=== PATIENT | female | born 1945 | race Caucasian/White ===

== ENCOUNTER → 2024-01-22 06:44 | Outpatient (REF) | payer MEDICARE, SELFPAY ==
[2024-01-22 08:13] LABS: Blood Urea Nitrogen 14 mg/dl (7-17); Calcium 9.3 mg/dl (8.4-10.2); Carbon Dioxide 26 mmol/L (22-30); Chloride 104 mmol/L (98-107); Glucose 94 mg/dl (70-99); Potassium 4.2 mmol/L (3.5-5.1); Sodium 136 mmol/L (135-145); eGFR > 60.00
[2024-01-22 08:34] LABS: TSH 1.14 uIU/ml (0.47-4.68)
[2024-01-22 09:10] LABS: Folate > 20.0 ng/ml (2.76-20); Vitamin B12 921 pg/ml (239-931)
[2024-01-22 14:49] LABS: Syphilis/T. pallidum Ab Reflex Negative (Negative)
[2024-01-24 14:27] LABS: Lyme Antibody Screen, EIA Negative (Negative)
[2024-01-25 01:45] LABS: Albumin 4.21 g/dL (3.75-5.01); Alpha 1 Globulin 0.34 g/dL (0.19-0.46); Alpha 2 Globulin 0.68 g/dL (0.48-1.05); Free Kappa Light Chains,Quant 16.39 mg/L (3.30-19.40); IgA 154 mg/dL (68-408); IgG 621 mg/dL (768-1632); IgM 84 mg/dL (35-263); Immunofixation Electrophoresis IFE Done; Total Protein-Electrophoresis 6.7 g/dL (6.3-8.2)
== END ==
LOC: REG 06:44
PROVIDERS: ATTENDING PHYSICIAN Internal Medicine Hematology & Oncology; FAMILY PHYSICIAN Family Medicine
DX: D80.1 Nonfamilial hypogammaglobulinemia (principal); H93.13 Tinnitus, bilateral
CPT/HCPCS: 36415; 80048; 82607; 82746; 82784; 83521; 84155; 84165; 84443; 86334; 86618; 86780

== ENCOUNTER → 2024-03-26 12:30 | Outpatient (REF) | payer MEDICARE, SELFPAY | LOC: RCS 12:30 | PROVIDERS: ATTENDING PHYSICIAN Internal Medicine Cardiovascular Disease; FAMILY PHYSICIAN Family Medicine | DX: I35.0 Nonrheumatic aortic (valve) stenosis (principal) | CPT/HCPCS: 93306 ==

== ENCOUNTER → 2024-05-22 06:27 | Outpatient (REF) | payer MEDICARE, SELFPAY ==
[2024-05-22 07:19] LABS: ALT (SGPT) 23 U/L (0-35); AST (SGOT) 38 U/L (14-36); Albumin 4.3 g/dl (3.5-5.0); Alkaline Phosphatase 62 U/L (38-126); Direct Bilirubin 0.1 mg/dl (0.0-0.4); HDL Cholesterol 76 mg/dl; LDL Cholesterol, Calculated 68 mg/dl; Total Bilirubin 0.6 mg/dl (0.2-1.3); Total Cholesterol 157 mg/dl (50-199); Total Protein 6.5 g/dl (6.3-8.2); Triglyceride 67 mg/dl (10-149); Very Low Density Lipoprotein 13 mg/dl (0-30)
== END ==
LOC: REG 06:27
PROVIDERS: ATTENDING PHYSICIAN Family Medicine; REFERRING PHYSICIAN Internal Medicine Cardiovascular Disease
DX: E78.5 Hyperlipidemia, unspecified (principal)
CPT/HCPCS: 36415; 80061; 80076

== ENCOUNTER → 2024-07-09 08:29 | Outpatient (REF) | payer MEDICARE, SELFPAY | LOC: RAD 08:29 | PROVIDERS: ATTENDING PHYSICIAN Family Medicine | DX: N95.1 Menopausal and female climacteric states (principal); M85.89 Other specified disorders of bone density and structure, multiple sites | CPT/HCPCS: 77080 ==

== ENCOUNTER → 2024-12-08 06:42 | Outpatient (REF) | payer MEDICARE, SELFPAY ==
[2024-12-08 07:27] LABS: % Basophils 0.8 % (0-2); % Eosinophils 1.3 % (0-6); % Immature Granulocytes 0.3 % (0-0.5); % Lymphocytes 26.5 % (20.5-51.1); % Monocytes 8.2 % (1.7-9.3); % Neutrophils 62.9 % (42.2-75.2); Absolute Eosinophils 0.1 10^3/uL (0-0.7); Absolute Monocytes 0.3 10^3/uL (0.1-0.6); Absolute Neutrophils 2.4 10^3/uL (1.4-6.5); Hematocrit 41.5 % (37.0-47.0); Hemoglobin 13.6 g/dL (12.0-16.0); Mean Corp Hgb Conc. 32.8 g/dL (33.0-37.0); Mean Corpuscular Hgb 31.2 pg (27.0-31.0); Mean Corpuscular Volume 95.2 fL (81.0-99.0); Mean Platelet Volume 9.6 fL (7.4-10.4); Nucleated Red Blood Cells % 0 %; Platelet Count 178 10^3/uL (130-400); Red Blood Cell Count 4.36 10^6/uL (4.20-5.40); Red Cell Dist. Width 12.2 % (11.5-14.5); White Blood Cell Count 3.9 10^3/uL (4.8-10.8)
[2024-12-08 07:59] LABS: ALT (SGPT) 25 U/L (0-35); AST (SGOT) 40 U/L (14-36); Albumin 4.1 g/dl (3.5-5.0); Alkaline Phosphatase 59 U/L (38-126); HDL Cholesterol 80 mg/dl; LDL Cholesterol, Calculated 68 mg/dl; Total Bilirubin 0.5 mg/dl (0.2-1.3); Total Cholesterol 159 mg/dl (50-199); Total Protein 6.2 g/dl (6.3-8.2); Triglyceride 57 mg/dl (10-149); Very Low Density Lipoprotein 11 mg/dl (0-30)
== END ==
LOC: REG 06:42
PROVIDERS: ATTENDING PHYSICIAN Family Medicine; REFERRING PHYSICIAN Internal Medicine Cardiovascular Disease
DX: E78.5 Hyperlipidemia, unspecified (principal); I25.10 Atherosclerotic heart disease of native coronary artery without angina pectoris; R74.01 Elevation of levels of liver transaminase levels
CPT/HCPCS: 36415; 80061; 80076; 85025

== ENCOUNTER → 2024-12-18 08:09 | Outpatient (REF) | payer MEDICARE, SELFPAY | LOC: RCS 08:09 | PROVIDERS: ATTENDING PHYSICIAN Internal Medicine Cardiovascular Disease; FAMILY PHYSICIAN Family Medicine | DX: I34.0 Nonrheumatic mitral (valve) insufficiency (principal) | CPT/HCPCS: 93306 ==

== ENCOUNTER → 2025-01-09 06:42 | Outpatient (REF) | payer MEDICARE, SELFPAY | LOC: RAD 06:42 | PROVIDERS: ATTENDING PHYSICIAN Family Medicine | DX: R74.01 Elevation of levels of liver transaminase levels (principal) | CPT/HCPCS: 76700 ==

== ENCOUNTER → 2025-03-30 06:52 | Outpatient (REF) | payer MEDICARE, SELFPAY ==
[2025-03-30 09:39] LABS: Blood Urea Nitrogen 14 mg/dl (7-17); Calcium 9.2 mg/dl (8.4-10.2); Carbon Dioxide 28 mmol/L (22-30); Chloride 105 mmol/L (98-107); Glucose 51 mg/dl (70-99); Potassium 4.3 mmol/L (3.5-5.1); Sodium 142 mmol/L (135-145); eGFR > 60.00
== END ==
LOC: REG 06:52
PROVIDERS: ATTENDING PHYSICIAN Nurse Practitioner Acute Care; FAMILY PHYSICIAN Family Medicine; REFERRING PHYSICIAN Internal Medicine Cardiovascular Disease
DX: I35.0 Nonrheumatic aortic (valve) stenosis (principal)
CPT/HCPCS: 36415; 80048

== ENCOUNTER → 2025-04-02 11:40 | Outpatient (REF) | payer MEDICARE, SELFPAY | LOC: RAD 11:40 | PROVIDERS: ATTENDING PHYSICIAN Nurse Practitioner Acute Care; FAMILY PHYSICIAN Family Medicine; REFERRING PHYSICIAN Internal Medicine Cardiovascular Disease | DX: I35.0 Nonrheumatic aortic (valve) stenosis (principal) | CPT/HCPCS: 74174; 75572; Q9967 ==

== ENCOUNTER 2025-05-14 05:24 | Inpatient (IN) | payer MEDICARE, SELFPAY ==
[2025-05-05 12:27] VITALS: BMI 23.5
[2025-05-05 13:01] LABS: % Basophils 0.8 % (0-2); % Eosinophils 1.3 % (0-6); % Immature Granulocytes 0.2 % (0-0.5); % Lymphocytes 24.1 % (20.5-51.1); % Neutrophils 66.6 % (42.2-75.2); Absolute Eosinophils 0.1 10^3/uL (0-0.7); Absolute Lymphocytes 1.1 10^3/uL (1.2-3.4); Absolute Monocytes 0.3 10^3/uL (0.1-0.6); Absolute Neutrophils 3.2 10^3/uL (1.4-6.5); Hematocrit 42.1 % (37.0-47.0); Hemoglobin 13.9 g/dL (12.0-16.0); Mean Corpuscular Hgb 31.3 pg (27.0-31.0); Mean Corpuscular Volume 94.8 fL (81.0-99.0); Mean Platelet Volume 9.4 fL (7.4-10.4); Nucleated Red Blood Cells % 0 %; Platelet Count 205 10^3/uL (130-400); Red Blood Cell Count 4.44 10^6/uL (4.20-5.40); Red Cell Dist. Width 12.2 % (11.5-14.5); White Blood Cell Count 4.7 10^3/uL (4.8-10.8)
[2025-05-05 13:03] LABS: Urine Albumin Negative (Neg - Trace); Urine Bilirubin Negative (Negative); Urine Character Clear (Clear); Urine Color Yellow; Urine Glucose Negative (Negative); Urine Ketone Negative (Negative); Urine Leukocyte Negative (Negative); Urine Nitrite Negative (Negative); Urine Occult Blood Negative (Negative); Urine Specific Gravity 1.005 (<1.030); Urine Urobilinogen Negative (Neg - 1+)
[2025-05-05 13:20] LABS: INR 0.91; PT 12.6 Sec (11.4-14.6)
[2025-05-05 13:21] LABS: APTT 30.7 Sec (23.4-35.0)
[2025-05-05 13:22] LABS: ALT (SGPT) 21 U/L (0-35); AST (SGOT) 32 U/L (14-36); Albumin 4.7 g/dl (3.5-5.0); Alkaline Phosphatase 64 U/L (38-126); Blood Urea Nitrogen 13 mg/dl (7-17); Calcium 9.2 mg/dl (8.4-10.2); Carbon Dioxide 29 mmol/L (22-30); Chloride 106 mmol/L (98-107); Estimated Creatinine Clearance 52 ml/min; Glucose 95 mg/dl (70-99); Potassium 4.2 mmol/L (3.5-5.1); Sodium 141 mmol/L (135-145); Total Bilirubin 0.7 mg/dl (0.2-1.3); eGFR > 60.00
[2025-05-05 13:23] LABS: NT-proBNP 700 pg/ml
[2025-05-05 14:15] LABS: Glycohemoglobin (HgbA1c) 5.8 % (4.0-5.6)
--- NOTE | 2025-05-05 16:26 | CM ---
spoke to pt in PAT's, we discussed preop TAVR teaching including sternal and driving restrictions. she is prev very indep, lives with her s.o. in a 2 story home with 2 steps to enter. she has the TAVR educ book, soap and instructions. she is
agreeable to a f/u visit for the ct transitional care nurse after dc. cm role explained and all questions answered. plan is for TAVR 05/14.
[2025-05-14] VITALS (17 sets, daily range): BP systolic 101–144; BP diastolic 67–102; BMI 22.9
--- NOTE | 2025-05-14 06:09 | PTCARENOTE ---
Pt came in @ 0520 this AM for direct admit for a TAVR procedure. AAOx3. VSS-- NSR w/ PVCs on monitor. CHG shower at home, 81 mg Aspirin taken this AM per directions. Pt clipped, IV placed, CHG wipes, type and screen completed. Discussed plan of care
for day. Pt verbalizes understanding. Call muir within reach.
--- NOTE | 2025-05-14 06:10 | W.CVOR.SURPR ---
CVOR Surgeon Immed Pre Op
-
I have examined this patient prior to performance of the scheduled procedure.
The patient's condition is unchanged from the time of the dictated/written History and
Physical and the patient is able to undergo the scheduled procedure.
TF TAVR
Full Rescue
[2025-05-14] MEDS: ANCEF 10 IV (07:06)
--- NOTE | 2025-05-14 08:55 | ITS.CL.TAVR ---
Correctional Maintenance Technician - TAVR Report
TAVR PRocedure
Procedure Report:
TRANSCATHETER AORTIC VALVE REPLACEMENT
Date of Procedure: May 14, 2025
Referring: Channing Nelson MD
Operators: Drs. Gena Powers and Molina Jackson
PROCEDURE PERFORMED:
1. Successful placement of 23 mm Shetty Jadon S3 Ultra Resilia aortic valve via right common femoral approach.
ACCESS:
1. Right common femoral artery, 8 Angolan sheath, under ultrasound guidance using a micropuncture kit.
2. Right common femoral vein, 6 Angolan sheath, under ultrasound guidance using a micropuncture kit.
3. Right radial artery, 6 Angolan sheath, and ultrasound-guided
Ultrasound was utilized for vascular access. The right femoral artery and vein were visualized under ultrasound, and the vessels was patent and arteries were pulsatile. An image was stored permanently in the patient's medical record. Under direct
ultrasound guidance, a 8 Angolan and a 6 Angolan sheath over respectively inserted into the right common femoral artery and vein, and an 6 Angolan sheath in the right radial artery, using a micropuncture kit through a modified Seldinger technique.
PREPROCEDURE NYHA CLASS: II
DESCRIPTION OF PROCEDURE: The patient was referred for assessment of severe symptomatic aortic stenosis and following a comprehensive evaluation it was felt that transcatheter aortic valve replacement (TAVR) would be the most appropriate treatment.
Informed consent was obtained prior to the procedure. A 'time-out' was called and the procedural plan was verbally confirmed by anesthesia, surgery, perfusion, and hemodialysis lab technician staff.
Arterial and venous access site were obtained in the right radial artery and right common femoral vein using ultrasound guidance and micropuncture technique. 6 Fr. sheaths were inserted.
A 5 Fr. transvenous pacing wire was advanced to the right ventricle where excellent pacing thresholds were obtained.
A 5 Fr. pigtail catheter was then advanced to the proximal ascending aorta / right aortic cusp where angiography was performed in multiple angles to define the co-planar angle that was most appropriate valve deployment (HANY 24/caudal 6)
Ultrasound guidance was then used to obtain arterial access in the right common femoral artery and a 4 Fr. micropuncture sheath was inserted. Angiography was performed and the arteriotomy site appeared appropriate for preclosure with two Perclose
devices. An 8 Fr sheath was then inserted back into the common femoral artery over a J-tipped guidewire. An AL1 catheter was positioned in the proximal descending aorta. An Extra Stiff 0.035' J-tip wire was inserted to provide extra-support to
facilitate the Shetty eSheath delivery. The 16 Fr. Shetty eSheath was successfully advanced in the descending thoracic aorta.
An AL1 catheter was advanced through the Shetty eSheath over a 0.035' J-tip guide wire. The AL1 catheter was positioned just above the aortic valve. A 0.035' Straight tip wire probed the aortic valve and crossed the stenotic leaflets. The AL1
was then advanced to the mid left ventricle. Estimated LV end-diastolic pressure invasively was significantly elevated at 26 mmHg. An Amplatz Extra-stiff wire with a generous curved tip was then positioned in the left ventricular apex. A 23 mm
Shetty Jadon S3 valve was brought to the table and the orientation of the valve on the balloon delivery system was confirmed by all operators. The Jadon S3 valve was advanced through the eSheath and into the proximal descending thoracic aorta.
The Jadon S3 valve was centered on the delivery balloon and the entire system was retroflexed as it crossed the aortic arch. The Jadon S3 delivery system was then advanced across the stenotic valve and the 23 mm Jadon S3 valve was deployed
during rapid pacing. The valve deployment was uneventful. Transthoracic echocardiographic images post valve deployment revealed minimal aortic insufficiency with excellent position of the aortic prosthesis. Mean transaortic gradient by
echocardiogram at bedside was 4 mmHg.
The Shetty balloon and delivery system were then removed. The Shetty sheath was removed and the Perclose knots were advanced to the arteriotomy site resulting in excellent hemostasis.
Fluoro Time: 13.4 min, Dose: 90.0 mGy, DAP : 8.9 gy.cm2
CONCLUSIONS:
1. Severe symptomatic aortic stenosis. Successful deployment of a 23 mm Jadon S3 ultra Resilia valve with minimal aortic insufficiency post procedure
2. Successful arteriotomy closure with 2 Perclose devices.
3. Acute on chronic diastolic heart failure with LVEDP of 26 mmHg
Gena Powers MD, [facility], [facility]
Copy to: Channing Nelson MD
--- NOTE | 2025-05-14 09:00 | W.PN.CT.SURG ---
CT Surgery Operative Note
-
OPERATIVE REPORT
Preoperative Diagnosis: Severe aortic valve stenosis, symptomatic
Postoperative Diagnosis: Same
Procedure(s) Performed: Right trans femoral TAVR with a 23 mm Shetty TAVR valve
Date of Procedure: 05/14/2025
Comorbidities:
1. Severe aortic stenosis, symptomatic
2. Syncope and collapse
3. Hypertension
4. Nonobstructive coronary artery disease
5. Hard of hearing
6. Hyperlipidemia
7. Acute on chronic systolic diastolic heart failure
Cardiac Surgeon: Molina Jackson MD, MS
Meat Curer: Gena Powers MD
Anesthesia: Conscious Sedation and Local Analgesia
EBL: 80cc
Products: none
Implant: Shetty MICHEAL 23 mm TAVR valve, SN: [id number]
Indication(s) for Procedures: 80-year-old female with symptomatic severe aortic stenosis. CT-TAVR protocol revealed acceptable anatomy for TAVR access and implantation.
Start time: 0743hrs
Deployment time: 0826hrs
End time: 0848hrs
Radiation Dose (mGy): 90
DAP (cm2.Gy): 8.90
Fluoroscopy time (minutes): 13.4
Contrast volume (ml): 43
TAVR gradient (mmHg): 4mmHg
Heparin Dose: 5000units
Protamine Dose: 40mg
Final Valve Positionin/10
Findings: Preoperative LVEF was 65% and was 65% following TAVR without inotropic support. Function was overall normal without regional wall motion abnormalities or dyskinesia. The aortic valve was well seated without detectable PVL and mean gradient
across the new valve was 3-4mmHg. initially after deploying the valve there was a new bundle branch block however this resolved after short period of time and returned to sinus while on the slab polisher table. There was successful placement of 23 mm
TAVR valve without acute complications. LVEDP pre-TAVR the balloon was found be 26 mmHg.
Access:
1. Device -right common femoral artery, perclose x 2
2. Pigtail -right radial plus TR band
3. Transvenous Pacer -right common femoral vein
Description of Procedure: The patient was taken to the slab polisher. Their identity and procedure to be performed were verified and they were positioned supine on the slab polisher table. Induction via conscious sedation. The patient was then prepped and
draped from chin to thigh in a sterile fashion. A preoperative time-out was performed with all members of the team present. Arterial and venous access was performed using fluoroscopy and ultrasound guidance with micropuncture and Seldinger
technique. Two perclose devices were used on the device side followed by access to the aorta with a stiff wire to facilitate E-sheath placement. Heparin was given. A stiff straight wire and AL-1 catheter was used to cross the aortic valve. An LVEDP
was then measured here. The stiff wire was exchanged for an extra stiff coiled tip wire. The valve was prepped and mounted on to the device carrier. An ACT of >250 was achieved. We verified x 3 that the valve was mounted in the correct orientation
with the skirt of the valve directed toward the tip of the device carrier. We advanced the device into the descending thoracic aorta where the valve was them mounted onto the balloon under fluoroscopy. The device was flexed and advanced over the
arch into the root and positioned across the aortic valve. Contrast fluoroscopy was used to visualize the prosthesis across the valve and to guide positioning. A pigtail catheter in the RCC as used as a guide. We aimed to have the bottom of the
device marker at the annular hinge point. The device sheath was pulled back. We performed a quick pre-deployment time out. The pacer was turned on and had capture. Blood pressure fell accordingly, angiography was done to verify the intended final
placement and the valve was deployed with 5 seconds of rapid pacing to nominal volume. The balloon was deflated and the pacer was turned off. We had recovery of vitals. The device carrier was unflexed and positioned back in the descending thoracic
aorta. A transthoracic echocardiogram was performed. The device was removed from the E-Sheath maintaining wire access followed by removal of the E-sheath as we cinched down the perclose devices. There was acceptable hemostasis. There was difficulty
with advancing the pigtail into the descending thoracic aorta given the patient's anatomy, as we had no issues with advancing the device sheath or device itself the vessels were not known to be tortuous on CTA, we opted to not perform a completion
angiogram. There was acceptable hemostasis of bilateral groins and manual pressure was held following wire removal. Palpation of distal femoral pulses was excellent. Low dose protamine was administered after checking another ACT.
All instrument, sponge, and needle counts were confirmed to be correct x 2 at the end of the operation. The patient was transferred to the cardiac intensive care unit in stable condition.
I, Dr. Molina Jackson, was present, scrubbed for, and performed all critical elements of this procedure.
Molina Jackson MD
Cardiothoracic Surgeon
[facility]
This operative dictation was created using the [employer] dictation system. Please excuse any grammatical, typographical, or 'sound alike' errors
[2025-05-14 09:04] LABS: ACT-LR - POC > 397 Seconds (116-155)
[2025-05-14] MEDS: LOW STRENGTH ASPIRIN PO (09:44)
[2025-05-14] MEDS: LASIX 20 MG IV (09:57)
--- NOTE | 2025-05-14 11:21 | CM ---
pt in TAVR procedure today, cm to follow.
[2025-05-14] MEDS: ANCEF IV (11:28)
[2025-05-14] MEDS: TYLENOL 650 MG PO (15:47)
[2025-05-14] MEDS: ANCEF 5 IV (15:47)
--- NOTE | 2025-05-14 17:16 | PTCARENOTE ---
Pt received from recovery area post TAVR. Right femoral sites with dry and intact dressings, no sign of bleeding or hematoma. Right radial site with radial band which was removed per protocol without problem. Pt voiding without difficulty, up
walking in halls. Pt reported a mild headaches and 'migraine lines ' across her visual field, pt stated this was not new for her. All symptoms resolved, Meri TORREZ notified. Telemetry shows sinus rhythm with one 4 beat run of NSVT. Plan
for CXR and Echo on 05/15.
[2025-05-14] MEDS: ZETIA 10 MG PO (17:42)
[2025-05-14] MEDS: CRESTOR 10 MG PO (21:18)
--- NOTE | 2025-05-14 23:19 | PTCARENOTE ---
Received pt @ change of shift. AAOx3. VSS-- NSR w/ occasional PVCs on monitor. Right radial site clean, dry, and intact. No ecchymosis, swelling, or tenderness. No hematoma present. Right femoral site clean, dry, and intact. No ecchymosis, swelling,
or tenderness. No hematoma present. Neuro checks benign. Pt ambulating around room independently. Denies pain @ this time. Discussed plan of care for evening and morning. Pt verbalizes understanding. Call muir within reach.
[2025-05-15] VITALS (7 sets, daily range): BP systolic 116–165; BP diastolic 64–79; PULSE 75; O2SAT 98; BMI 22.8
[2025-05-15] MEDS: TYLENOL 650 MG PO ×2 (01:54→09:12)
[2025-05-15] MEDS: ROXICODONE 2.5 MG PO (02:34)
--- NOTE | 2025-05-15 02:40 | W.PN.CT ---
Today's Communication / Plan
-
-pod #1
-pt c/o R-sided throbbing TEJEDA with 'squiggly lines' aura, similar to her usual migraine sxs- improved with Tylenol and low-dose Luz. No focal neuro deficits on exam
-diuresed with 20 iv Lasix on 05/14 (UO over 1999)
-incisions are stable, soft, no hematoma
-nsr with PACs and PVCs overnight. 6 beat NSVT noted. No feliciano or pauses -resumed Toprol in am
-continue ASA, Crestor
-Echo today
-possible d/c home
Assessment / Plan
-
- Severe aortic stenosis, symptomatic- s/p Right trans femoral TAVR with a 23 mm Shetty TAVR valve on 05/14/25, pod #1
- Introp TTE: Preoperative LVEF was 65% and was 65% following TAVR without inotropic support. Normal LV fxn without regional wma or dyskinesia. The aortic valve was well seated without detectable PVL and mean gradient across the new valve was
3-4mmHg.
- Acute on chronic diastolic CHF- LVEDP 26- diuresed with 20 iv Lasix (UO 2124+)
- Syncope and collapse
- Hypertension
- Nonobstructive coronary artery disease
- Hard of hearing
- Hyperlipidemia
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
- OA
- Sciatica
Discussed patient care with: Nursing and Care Team
Subjective
-
Date of Service: May 15, 2025
Objective Data
-
PT 12.6 Sec (11.4-14.6) 05/05/25 12:43
INR 0.91 05/05/25 12:43
APTT 30.7 Sec (23.4-35.0) 05/05/25 12:43
Vital Signs
Vital Signs
Temp Pulse Resp BP Pulse Ox
98.2 F 70 14 107/69 96
05/14/25 22:25 05/14/25 22:45 05/14/25 22:25 05/14/25 22:25 05/14/25 22:25
CT Intake/Output/Weight
05/14/25 05/14/25 05/15/25
06:59 18:59 06:59
Intake Total 1720 / 1720
Output Total 2124 / 2124
Balance -405 / -405
SaO2: 96
Physical Exam
-
General: Awake and AOx3
Cardiovascular: Regular rate & rhythm, No Murmurs and No Rub
Respiratory: Clear and Decreased Breath Sounds
Incision: Other (R groin and R wrist incisions are cdi, soft, nontender, no hematoma)
Extremities: No Edema
Neuro: A&O x4, no focal deficits, c/o R sided throbbing TEJEDA with aura (squiggly lines), similar to her migraine sxs in the past, better with Tylenol
Data Reviewed
-
Lab Results: Results Reviewed
Medications: Active Meds Reviewed
Chest X-Ray: Report Reviewed and Image Reviewed
ECG: Report Reviewed and Image Reviewed
[2025-05-15 02:46] LABS: Hematocrit 40.6 % (37.0-47.0); Hemoglobin 13.7 g/dL (12.0-16.0); Mean Corp Hgb Conc. 33.7 g/dL (33.0-37.0); Mean Corpuscular Hgb 30.9 pg (27.0-31.0); Mean Corpuscular Volume 91.4 fL (81.0-99.0); Mean Platelet Volume 9.2 fL (7.4-10.4); Platelet Count 148 10^3/uL (130-400); Red Blood Cell Count 4.44 10^6/uL (4.20-5.40); Red Cell Dist. Width 12.3 % (11.5-14.5)
[2025-05-15 03:07] LABS: Blood Urea Nitrogen 15 mg/dl (7-17); Calcium 9.1 mg/dl (8.4-10.2); Carbon Dioxide 27 mmol/L (22-30); Chloride 106 mmol/L (98-107); Estimated Creatinine Clearance 60 ml/min; Glucose 104 mg/dl (70-99); Potassium 4.2 mmol/L (3.5-5.1); Sodium 139 mmol/L (135-145); eGFR > 60.00
[2025-05-15 06:16] LABS: Hepatitis C Antibody Negative (Negative)
--- NOTE | 2025-05-15 07:19 | W.PN.CARDCBS ---
Addendum entered and electronically signed by Gena Powers MD 05/15/25 15:19:
I saw and examined the patient.
The Supervisor Tank Cleaning's note was reviewed and I agree with the note.
Comment: Patient is doing well and does not offer any significant complaints this morning. She was given 20 mg of IV Lasix in the evening with good response and denies any shortness of breath, chest discomfort or any groin issues. She has been out
of bed ambulating without any difficulty.
Vital signs and lab work reviewed. On exam patient is well-appearing, awake, alert and oriented x 3, regular rate, normal S1 and S2, soft 2 out of 6 systolic ejection murmur at the right upper sternal border, no JVD, lungs are clear to auscultation
bilaterally, right radial access site with dressing in place which is clean, dry and intact without evidence of hematoma or bruit, right common femoral access site with dressing in place which is clean, dry and intact without evidence of hematoma or
bruit, warm extremities without significant edema.
Recommendations:
1. Patient is status post a successful 23 mm Shetty MICHEAL S3 ultra Resilia TAVR on May 14, 2025.
2. Continue daily aspirin. LVEDP was elevated at the time of the heart catheterization at 26 mmHg for which patient received 20 mg of IV Lasix last evening. She is not examining in any decompensated heart failure today with no symptoms concerning
for diastolic heart failure therefore no plans to continue standing diuretics upon discharge.
3. Telemetry with 6 beat run of NSVT and frequent PVCs, plan to resume home beta-aislinn.
4. ECG from this morning with no acute ischemic changes.
5. Echocardiogram reviewed from postop day 1 showing normal LV systolic function, well-seated, well appearing valve with transaortic mean gradient across the 23 mm Shetty MICHEAL TAVR of 16 mmHg, 4 mmHg yesterday at the end of the procedure. Trace
aortic regurgitation.
6. Patient has been ambulating with no limitations. Stable for discharge home later today.
7. Referral for outpatient cardiac rehab.
Discussed with nursing and patient at bedside.
Gena Powers MD, [facility], [facility] [id number]
Total time spent: 35mins
Original Note:
Today's Communication / Plan
-
-f/u echo
-check mag
Impression / Plan
-
PCP: Blanca Hunt
Primary Head Of Physics: Channing Nelson MD
Impression:
Severe aortic stenosis
Status post TAVR 05/14/2025, 23 mm Shetty MICHEAL S3 ultra Resilia aortic valve
acute on chronic diastolic HF-LVEDP 26 mm Hg per cath 05/14/2025-rec'd Lasix 20 mg IV
Hyperlipidemia
Syncope
Hypertension
nonobstructive CAD�40% ostial LAD stenosis cath 11/2023
Bilateral sciatica
Arthritis
migrane headaches with aura
PVCs
Cardiovascular diagnostic testing:
Cardiac cath 11/28/2023: LAD with 40% ostial/proximal stenosis. Circumflex medium caliber, OM1 arises proximally from circumflex and is small to medium caliber widely patent. Small OM 2. RCA nondominant
Echo 05/14/2025 post TAVR: Normal LV/RV size and function, LVEF 60%, 23 mm Shetty Resilia TAVR peak/mean 7/4 mmHg, no AI, no pericardial effusion
Echo 12/18/2024: LVEF 60 to 65%, mild to moderate MR, severe with trace AI, peak/mean 68/38 mmHg, GLYNN 0.5 cm�, PASP 31 mmHg
Echo 5 11/2023: LVEF 60%, normal RV size and function, mild MR, severe peak/mean 54/30 mmHg, GLYNN 0.7 cm� PAP 24 mmHg
Plan:
-
Postop day 1 status post TAVR #23 mm Shetty MICHEAL S3 ultra Resilia aortic valve via right common femoral approach.
- Immediate postprocedure echo with EF 60%, peak/mean gradient 7/4 mmHg, no AI, no pericardial effusion
- Follow-up echo today
- LVEDP 26 mmHg, received Lasix 20 mg IV x 1, weight down 1 pound and I/O balance -405 mL
-Telemetry personally reviewed: SB/NSR 50-60s, pvcs, 6 beat NSVT @0134
-EKG NSR 68 bpm, no ST-wave abnl, QTc 406 msec
-K 4.2, will add on Mag to a.m. labs
-Continue Toprol
-BPs were 140s-160s/ overnight in setting of migrane, BP better this a.m, 120s/. Remains on Toprol 12.5 mg daily
-f/u at [facility] arranged for 06/17/2025
Progress Note - Head Of Physics
Subjective
Date of Service: May 15, 2025
POD 1 s/p TAVR
migrane overnight, improved today
6 beat NSVT
Objective
Labs:
05/15/25 02:09
05/15/25 02:09
Labs
Hgb 13.7 g/dL (12.0-16.0) 05/15/25 02:09
Hct 40.6 % (37.0-47.0) 05/15/25 02:09
Plt Count 148 10^3/uL (130-400) 05/15/25 02:09
PT 12.6 Sec (11.4-14.6) 05/05/25 12:43
INR 0.91 05/05/25 12:43
APTT 30.7 Sec (23.4-35.0) 05/05/25 12:43
Sodium 139 mmol/L (135-145) 05/15/25 02:09
Potassium 4.2 mmol/L (3.5-5.1) 05/15/25 02:09
BUN 15 mg/dl (7-17) 05/15/25 02:09
Creatinine 0.6 mg/dL (0.6-1.0) 05/15/25 02:09
Glucose 104 mg/dl (70-99) H 05/15/25 02:09
Vital Signs and I&O:
Vital Signs
Temp Pulse Resp BP Pulse Ox
97.7 F 66 20 145/75 98
05/15/25 07:10 05/15/25 04:00 05/15/25 07:10 05/15/25 02:26 05/15/25 07:10
Vital Signs
Temp Pulse Resp BP Pulse Ox
97.7 F 66 20 145/75 98
05/15/25 07:10 05/15/25 04:00 05/15/25 07:10 05/15/25 02:26 05/15/25 07:10
Intake & Output
05/13/25 05/14/25 05/15/25 05/16/25
06:59 06:59 06:59 06:59
Intake Total 1720 / 1720
Output Total 2124 / 2124
Balance -405 / -405
Physical Exam
Physical Exam
GEN: No distress, awake, Ox3
HEENT: supple, anicteric, mmm
LUNGS: CTA, no wheezes/rales
CV: Reg, S1/S2,no murmur
ABD: soft, BS+, NT/ND
EXT: No edema
NEURO: Gross non-focal
SKIN: No rash
--- NOTE | 2025-05-15 07:30 | W.PN.ANS.POP ---
Anesthesia Post Operative
- Anesthesia Post Op Note
Vital Signs Stable-See Nursing Note: Yes
Airway Patent: Yes
Adequate Pain Control: Yes (Patient c/o migraine x 2 yesterday. Have since resolved. )
Change in Mental Status: No
Current Postoperative Nausea & Vomiting: No
Anesthesia Complications: No
General Anesthetic Recall: No
Unplanned Admission: No
Post Op Hydration Adequate: Yes
[2025-05-15 08:18] LABS: Magnesium 1.9 mg/dl (1.6-2.3)
[2025-05-15] MEDS: LOW STRENGTH ASPIRIN 81 MG PO (09:12)
[2025-05-15] MEDS: TOPROL XL 12.5 MG PO (09:12)
--- NOTE | 2025-05-15 09:30 | W.DCSUMMARY ---
Discharge Summary
Discharge Data
Date of Admission: 05/14/25
Date of Discharge: 05/15/25
Total time spent discharging patient (in min): 34
-
Pending Results: No
Hospital Course
Primary care physician:
Dr. Bullock
Outpatient therapeutic massage technician:
Channing Nelson MD
Inpatient consultants:
DCA
Procedures:
1. Right trans femoral TAVR with a 23 mm Shetty TAVR valve
Primary Diagnosis:
1. Severe aortic stenosis
Secondary Diagnoses:
1. Acute on chronic systolic diastolic heart failure
2. Syncope and collapse
3. Hypertension
4. Nonobstructive coronary artery disease
5. Hard of hearing
6. Hyperlipidemia
HPI: 80-year-old female with severe aortic stenosis presents electively on 05/14 for a transfemoral transcatheter aortic valve replacement with Dr. Jackson.
Hospital course:
Patient was electively admitted on 05/14 for a transcatheter aortic valve replacement with Dr. Jackson. 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 B/l groins remain stable and diuresed with 20mg IV lasix. She was sent to IVU
for the remainder of their recovery. On 05/15, POD #1, B/L groins remained stable. she tolerated AM dose of BB. Repeat TTE showed a peak/mean gradients across the aortic valve are 29/16 mmHg and a LVEF of 55-60%. She was deemed stable for discharge.
Home medication changes:
None
Discharge Plan
-
Patient Disposition: Home (Routine Discharge)
Discharge Diagnosis/Procedures: TF TAVR
Condition: Good
Diet: Low Fat, Low Cholesterol and 2 Gram Sodium
Activity: As tolerated
Driving Restrictions: No driving for 1 week
Bathing Restrictions: OK to Shower
Others Tests: Your 30-day follow up echocardiogram: 06/15/2025 at 1pm at [facility].
You will need lifelong preprocedural/predental antibiotic prophylaxis for any future dental procedures
Other Services: Cardiac Rehab
Wound Care: NO lotions, powders, or creams to puncture sites
Specialty Instructions: Weigh Daily- Call MD for wt gain/loss 3 lbs overnight/5 lbs in 1 week
Stand Alone Forms: DC Inst - TransFemoral (TAVR)
Referrals:
CT Transitional Care Nurse [Outside]
Referral Note:
The Cardiothoracic Transitional Care Nurse will call you to set up a visit in 1-2 days.
Blanca Bullock DO [Family Provider, Family Practice]
Kenya Yousif PA-C [Specified Professional Personl, Cardiology] - 06/17/25 3:20 pm
Additional Discharge Medication Instructions: please resume your Lopressor schedule tomorrow
Prescriptions:
New
acetaminophen 325 mg Tablet
650 mg PO Q4HPRN PRN (Reason: TEJEDA, mild pain, or fever >101F) Qty: 0 0RF
Continued
aspirin [Karli Chewable Aspirin] 81 MG tablet,chewable
81 mg PO DAILY
rosuvastatin 10 MG tablet
10 mg PO HS
metoprolol succinate 25 mg Tablet Extended Release 24 Hr
12.5 mg PO QPM
ezetimibe 10 mg Tablet
10 mg PO QPM
diphenhydramine-acetaminophen [Tylenol PM Extra Strength] 25-500 mg Tablet
1 tab PO HS PRN (Reason: SLEEP)
Gemtesa 75 mg Tablet
75 mg PO NOON
Systane (PF) 0.4-0.3 % Dropperette
1 drp OPHTHALMIC (EYE) BID
Rx Instructions:
BOTH
cholecalciferol (vitamin D3) [Vitamin D3] 25 mcg (1,000 unit) Tablet
25 mcg PO DAILY
multivitamin Tablet
1 tab PO DAILY
Ca-D3-mag [id number] [Calcium 600-D3 Plus (mag-zinc)] 600 mg calcium- 20 mcg-50 mg Tablet
1 tab PO DAILY
Held
naproxen sodium [Aleve] 220 mg Capsule
220 mg PO PRN PRN (Reason: PAIN)
Hold Instructions: Resume on 05/29/25.
Discharge Orders:
Discharge Patient (As Directed); Ordered 05/15/25
Ordered By: Pearl Doe
Care Plan Goals
Care Plan Goals:
Problem: Readiness for enhanced knowledge related to diagnosis and treatment plan
Goal: Understand your diagnosis and treatment plan needs, including medications if applicable.
Instructions: Know your diagnosis, underlying causes and treatment plan options, including medications if applicable. Consult with your health care team to learn about your diagnosis and treatment plan, including medications if applicable.
Discharge Date and Time
Print Language: BELARUSIAN
--- NOTE | 2025-05-15 09:56 | CM ---
Reviewed chart. Met with Mrs. Diana to review discharge plans. She states she is feeling well and maybe able to go home soon. She states she has been ambulating in the room and hallway. She states prior to admission she resides with her
significant other in a two story aby with two steps to enter. She states she has a full flight of steps to get to bedroom/full bathroom. She states she has a powder room on the first floor. She states prior to admission she was independent with
ambulation and adls. She states she does not have any DME in the home. She states she has a prescription plan and uses [facility]. We reviewed a home visit by the Transitional Care Nurse. She is agreeable to a home visit. She states her
significant other will be home to assist in her care if needed. Medical work-up in progress. The discharge plan is to return home with significant other and a home visit by the Transitional Care Nurse when medically stable.
--- NOTE | 2025-05-15 15:14 | PTCARENOTE ---
Pt seen by Pearl Doe . Pt reports mild headache which improved after tylenol and some 'migraine aura' visual changes which she states is not new. Pt states she informed Dr. Jackson of this.SBP slightly elevated, metoprolol given. Telemetry and IV
device removed. Right femoral dressing and right radial dressings dry and intact, no sign of bleeding or hematoma. Discharge instructions reviewed with pt and her chief administrative officer regarding wound care, activity and driving restrictions, medications and
their possible side effects, reporting cares and concerns and stroke symptoms. Excellent understanding verbalized. Pt escorted out via wheelchair and discharged to home.
== END 2025-05-15 14:27 | disposition home or self-care (01) | DRG 266 ==
LOC: IVU 05:24
PROVIDERS: Nurse Practitioner; ADMITTING PHYSICIAN Thoracic Surgery (Cardiothoracic Vascular Surgery); FAMILY PHYSICIAN Family Medicine; OTHER PHYSICIAN Internal Medicine Interventional Cardiology
PROC: 02RF38Z Replacement of Aortic Valve with Zooplastic Tissue, Percutaneous Approach (ICD-10-PCS; 2025-05-14)
DX: I35.0 Nonrheumatic aortic (valve) stenosis (principal); Z00.6 Encounter for examination for normal comparison and control in clinical research program; I50.43 Acute on chronic combined systolic (congestive) and diastolic (congestive) heart failure; I47.29 Other ventricular tachycardia; I49.3 Ventricular premature depolarization; I11.0 Hypertensive heart disease with heart failure; I25.10 Atherosclerotic heart disease of native coronary artery without angina pectoris; E78.5 Hyperlipidemia, unspecified; G43.109 Migraine with aura, not intractable, without status migrainosus; H91.90 Unspecified hearing loss, unspecified ear
CPT/HCPCS: 93308; 33361; 36415; 71045; 71046; 80048; 80053; 81003; 82248; 83036; 83735; 83880; 85025; 85027; 85347; 85610; 85730; 86803; 86850; 86900; 86901; 87070; 93005; 93321; 93325; C1760; C1769; C1894

== ENCOUNTER → 2025-06-15 12:48 | Outpatient (REF) | payer MEDICARE, SELFPAY | LOC: HWRCS 12:48 | PROVIDERS: ATTENDING PHYSICIAN Internal Medicine Cardiovascular Disease; FAMILY PHYSICIAN Family Medicine | DX: Z95.3 Presence of xenogenic heart valve (principal) | CPT/HCPCS: 93306 ==

== ENCOUNTER → 2025-08-31 09:51 | Outpatient (REF) | payer MEDICARE, SELFPAY ==
[2025-08-31 13:08] LABS: TSH 0.97 uIU/ml (0.47-4.68)
== END ==
LOC: REG 09:51
PROVIDERS: ATTENDING PHYSICIAN Family Medicine; FAMILY PHYSICIAN Internal Medicine Cardiovascular Disease
DX: E78.5 Hyperlipidemia, unspecified (principal)
CPT/HCPCS: 36415; 84443